=== PATIENT | female | born 1945 | race Caucasian/White ===

== ENCOUNTER → 2018-08-07 | Day surgery (SDC) | payer MEDICARE, OTHER ==
[2018-08-03 10:32] LABS: Basophils # (auto) 0.1 uL; Basophils % (auto) 1.2 % (0.0-2.0); Eosinophils # (auto) 0.1 uL; Eosinophils % (auto) 1.8 % (0.0-7.0); Hematocrit 42.4 % (36.0-46.0); Hemoglobin 14.4 g/dL (12.2-16.2); Lymphocytes # (auto) 1.7 uL; Lymphocytes % (auto) 28.3 % (10.0-50.0); Mean Corpuscular Hemoglobin 30.8 pg (28.0-32.0); Mean Corpuscular Hgb Conc. 34.1 g/dL (32.0-36.0); Mean Corpuscular Volume 90.4 fL (80.0-100.0); Monocytes # (auto) 0.6 uL; Monocytes % (auto) 9.8 % (0.0-12.0); Neutrophils # (auto) 3.5 uL; Neutrophils % (auto) 58.9 % (37.0-80.0); Platelet Count (auto) 209 10^3/uL (140-450); Red Blood Cells 4.68 10^6/uL (4.0-5.20); Red Cell Distribution Width 12.7 % (11.8-14.3); White Blood Cell 5.9 10^3/uL (4.4-10.8)
[2018-08-03 10:46] LABS: INR 0.89 (0.9-1.15); Partial Thromboplastin Time 23.9 sec (23.78-33.04)
[2018-08-03 10:56] LABS: Albumin 3.8 g/dL (3.4-5.0); Calcium 9.7 mg/dL (8.5-10.1); Potassium 3.8 mmol/L (3.5-5.1)
[2018-08-03 11:02] LABS: Bilirubin, Total 0.5 mg/dL (0.2-1.0); Total Protein 7.3 g/dL (6.4-8.2)
[2018-08-03 11:17] LABS: Urine Bacteria NONE SEEN /hpf (None Seen); Urine Blood Negative /uL (Negative); Urine Specific Gravity 1.006 (1.001-1.035); Urine WBC <1 /hpf (0 - 5)
[2018-08-03 11:31] LABS: BUN/Creatinine Ratio 15.7
[~2018-08-07] VITALS: Ht 160 cm; Wt 68.9 kg
[~2018-08-07] MED LIST: ALEN1TAB32 PO; AMLO5TAB13 PO; CALCTAB5 PO; CARI350T22 PO; ETOMIDATE (2MG/ML) 20ML VIAL IV ONE; GABA300C10 PO; GLYCOPYRROLATE 0.2 MG/ML 1ML VIAL ONE; HYDR25TA4 PO; HYDROmorphone HCL 2 MG/ML VL IV PRN; IBUP200C14 PO; LIDOCAINE 1% (LOCAL ANESTH.) PF 5ml SDV ONE; LIDOCAINE 1% HCL (LOCAL ANESTH.) INJ 20ML MDV ONE; LIDOCAINE W/ EPINEPHRINE 2% INJ 20ML VIAL ONE; LOSA-49 PO; MIDAZOLAM HCL 1MG/1ML-2 ML VIAL ONE; MULT-228 PO; NALOXONE HCL 0.4 MG/ML VIAL IV PRN; NEOSTIGMINE 1 MG/ML INJ (10mg/10ML VIAL) ONE; OMEG100062 PO; ONDANSETRON HCL 4 MG/2 ML VIAL IV ONE; PRAV20TA3 GT; ROCURONIUM 10MG/ML 10ML VIAL IV ONE; ROPIVACAINE 0.5% (5MG/ML) 20ML AMPULE IJ ONE; STERILE WATER 10 ML ONE; SUCCINYLCHOLINE CHLORIDE 20 MG/ML 10ML VIAL IV ONE; ceFAZolin 1GM/50ML 50 ML IV ONE; ePHEDrine SULFATE 50 MG/ML AMP ONE; fentaNYL CITRATE 100 MCG/2 ML VL ONE
[2018-08-07 13:22] VITALS: BP 151/88
== END | disposition home or self-care (01) ==
LOC: SUR 07:58
PROVIDERS: ATTEND Orthopaedic Surgery
DX: M65.811 Other synovitis and tenosynovitis, right shoulder (principal); M75.51 Bursitis of right shoulder; M75.121 Complete rotator cuff tear or rupture of right shoulder, not specified as traumatic; M75.41 Impingement syndrome of right shoulder; M75.21 Bicipital tendinitis, right shoulder; M19.011 Primary osteoarthritis, right shoulder; M89.8X1 Other specified disorders of bone, shoulder; M24.111 Other articular cartilage disorders, right shoulder; I10 Essential (primary) hypertension; M19.90 Unspecified osteoarthritis, unspecified site; G56.81 Other specified mononeuropathies of right upper limb; E11.40 Type 2 diabetes mellitus with diabetic neuropathy, unspecified; G89.29 Other chronic pain; Z79.899 Other long term (current) drug therapy; Z87.891 Personal history of nicotine dependence; Z98.890 Other specified postprocedural states
CPT/HCPCS: 29822; 29826; 36415; 64450; 80053; 81001; 85025; 85610; 85730; J0330; J0690; J2250; J2795; J3010; J2001

== ENCOUNTER 2024-10-14 04:35 | Emergency (ER) | payer MEDICARE, OTHER ==
[~2024-10-14] VITALS: Ht 157.5 cm; Wt 68.0 kg
[~2024-10-14 04:35] MED LIST changes: -ALEN1TAB32 PO; +ALEN70TA74 PO; +AMLO1TAB22 PO; -AMLO5TAB13 PO; +CARI-578 PO; -CARI350T22 PO; -ETOMIDATE (2MG/ML) 20ML VIAL IV ONE; +GABA-1250 PO; -GABA300C10 PO; -GLYCOPYRROLATE 0.2 MG/ML 1ML VIAL ONE; -HYDROmorphone HCL 2 MG/ML VL IV PRN; -LIDOCAINE 1% (LOCAL ANESTH.) PF 5ml SDV ONE; -LIDOCAINE 1% HCL (LOCAL ANESTH.) INJ 20ML MDV ONE; -LIDOCAINE W/ EPINEPHRINE 2% INJ 20ML VIAL ONE; -LOSA-49 PO; +LOSA-535 PO; -MIDAZOLAM HCL 1MG/1ML-2 ML VIAL ONE; -NALOXONE HCL 0.4 MG/ML VIAL IV PRN; -NEOSTIGMINE 1 MG/ML INJ (10mg/10ML VIAL) ONE; -ONDANSETRON HCL 4 MG/2 ML VIAL IV ONE; -ROCURONIUM 10MG/ML 10ML VIAL IV ONE; -ROPIVACAINE 0.5% (5MG/ML) 20ML AMPULE IJ ONE; -STERILE WATER 10 ML ONE; -SUCCINYLCHOLINE CHLORIDE 20 MG/ML 10ML VIAL IV ONE; -ceFAZolin 1GM/50ML 50 ML IV ONE; -ePHEDrine SULFATE 50 MG/ML AMP ONE; -fentaNYL CITRATE 100 MCG/2 ML VL ONE
--- NOTE | 2024-10-14 05:03 | ED.PDOC ---
History of Present Illness HPI Comments 79 y/o F presents with c/c hypertension, chest wall tightness, and generalized arm and leg tingling sensations. Patient reports sudden and unprovoked onset of symptoms, this morning, at 0400. She reports on, initially, experiencing chest tightness and tingling sensations before checking and noticing her blood pressure being elevated at 185/90. Patient then reports on taking her prescribed Clonidine medication at 0410 and rechecking her blood pressure 20 minutes afterwards at 198/110. Now, patient reports some improvement, endorsing only having mild tingling sensations to her hands and feet, dry mouth, and a stomach ache. Denies having any shortness of breath, palpitations, dizziness, lightheadedness, fever, chills, or further associated symptoms. No endorsement of any recent lifestyle changes or additional pertinent history. Time Seen by MD: 04:45 Primary Care Provider: [email or web address] Reviewed Notes: Nurses Notes, Medications, Allergies Allergies: Coded Allergies: NO KNOWN ALLERGIES (Unverified , 04/19/13) Home Meds Reported Medications [place]-3 Fatty Acids (Fish Oil) 1,000 Mg Cap, 1000 MG PO, CAP 08/03/18 Multiple Vitamin (Multi-Day Vitamins) Vitamins Tab, 1 TAB PO DAILY, #30 TAB 08/03/18 Calcium Carbonate (Caltrate 600) 1,500 Mg Tab, 1000 MG PO, TAB 08/03/18 Ibuprofen (Advil) 200 Mg Cap, 200 MG PO, CAP 08/03/18 Gabapentin (Gabapentin) 300 Mg Cap, 300 MG PO for 30 Days, MG 08/03/18 Carisoprodol (Carisoprodol) 350 Mg Tab, 350 MG PO Q12HP PRN for BLADDER SPASM for 30 Days, MG 08/03/18 Alendronate Sodium (Alendronate Sodium) 70 Mg Tab, 1 TAB PO QWEEKLY, #4 TAB 3 Refills 08/03/18 Pravastatin Sodium (PRAVACHOL TABLET) 20 Mg Tb, 80 MG GT 08/03/18 Amlodipine Besylate (Amlodipine Besylate) 5 Mg Tab, 2.5 MG PO DAILY for 30 Days, MG 08/03/18 Hydrochlorothiazide (Hydrochlorothiazide) 25 Mg Tab, 25 MG PO DAILY for 30 Days, MG 08/03/18 Losartan Potassium (Losartan Potassium) 100 Mg Tab, 1 TAB PO DAILY, #30 TAB 5 Refills 08/03/18 Information Source: Patient Mode of Arrival: Ambulatory Severity: Moderate Timing: Hours Duration: Since onset Prehospital treatment: Treatment (Clonidine ) Past Medical History PAST MEDICAL HISTORY: HTN Surgical History: BTL Surgical History (Other): Right shoulder surgery OPTICAL ENGINEER History: Denies all OPTICAL ENGINEER Hx Family History Family History: Unknown Social History Smoker: Non-Smoker Alcohol: Denies ETOH Use Drugs: Denies Drug Use Lives In: Home All Other Systems: Reviewed and Negative (Comprehensive systems review obtained and negative except for what is stated in the HPI.) Physical Exam General Appearance: Moderate Distress HEENT: Normal ENT Inspection, Pharynx Normal, TMs Normal Neck: Full Range of Motion, Non-Tender, Normal, Normal Inspection Respiratory: Chest Non-Tender, Lungs Clear, No Accessory Muscle Use, No Respiratory Distress, Normal Breath Sounds Cardiovascular: No Edema, No JVD, No Murmur, No Gallop, Normal Peripheral Pulses, Regular Rate/Rhythm Breast Exam: Deferred Gastrointestinal: No Organomegaly, Non Tender, No Pulsatile Mass, Normal Bowel Sounds, Soft Genitalia: Deferred Pelvic: Deferred Rectal: Deferred Extremities: No calf tenderness, Normal capillary refill, Normal inspection, Normal range of motion, Non-tender, No pedal edema Musculoskeletal : Apperance: Normal Neurologic: Alert, mathematician research II-XII nml as Tested, No Motor Deficits, Normal Affect, Normal Mood, No Sensory Deficits Cerebellar Function: NOT DONE Reflexes: NOT DONE Skin: Dry, Normal Color, Warm Peripheral Pulses: 3+ Radial (R), 3+ Radial (L) Lymphatic: No Adenopathy Was a procedure done? Was a procedure done?: No EKG EKG : Pulse Rate (adult): 70 [place]: Normal Cardiac Rhythm: NSR Block: None Hypertrophy: None ST: Normal Differential Dx Considerations may include: HTN emergency, inappropriate medication dosage, dehydration, electrolyte imbalance, GA, PE, ACS, angina, among others X-Ray, Labs, Meds, VS Vital Signs Date Time Temp Pulse Resp B/P (MAP) Pulse Ox O2 Delivery O2 Flow Rate FiO2 10/14/24 05:36 63 10/14/24 05:03 70 10/14/24 04:43 70 10/14/24 04:35 97.5 72 20 184/89 (120) 98 97.5 Lab Test 10/14/24 06:29 10/14/24 05:56 10/14/24 05:29 Range/Units Troponin I High Sensitivity Pending 4 </=34 ng/L B-Type Natriuretic Peptide Pending White Blood Count 4.6 4.4-10.8 10^3/uL Red Blood Count 4.74 4.0-5.20 10^6/uL Hemoglobin 14.7 12.2-16.2 g/dL Hematocrit 41.4 36.0-46.0 % Mean Corpuscular Volume 87.4 80.0-100.0 fL Mean Corpuscular Hemoglobin 31.0 28.0-32.0 pg Mean Corpuscular Hemoglobin Concent 35.5 32.0-36.0 g/dL Red Cell Distribution Width 12.9 11.8-14.3 % Platelet Count 213 140-450 10^3/uL Mean Platelet Volume 8.1 6.9-10.8 fL Neutrophils (%) (Auto) 59.5 37.0-80.0 % Lymphocytes (%) (Auto) 22.4 10.0-50.0 % Monocytes (%) (Auto) 9.2 0.0-12.0 % Eosinophils (%) (Auto) 6.5 0.0-7.0 % Basophils (%) (Auto) 2.4 H 0.0-2.0 % Neutrophils # (Auto) 2.8 1.6-8.6 10 ^3/uL Lymphocytes # (Auto) 1.0 0.4-5.4 10 ^3/uL Monocytes # (Auto) 0.4 0-1.3 10 ^3/uL Eosinophils # (Auto) 0.3 0-0.8 10 ^3/uL Basophils # (Auto) 0.1 0-0.2 10 ^3/uL Nucleated Red Blood Cells 0.0 % Sodium Level 140 136-145 mmol/L Potassium Level 3.5 3.5-5.1 mmol/L Chloride Level 103 98-107 mmol/L Carbon Dioxide Level 30 20-31 mmol/L Anion Gap 7 5-15 Blood Urea Nitrogen 12 9-23 mg/dL Creatinine 0.84 0.550-1.02 mg/dL Glomerular Filtration Rate Calc 71 >90 mL/min BUN/Creatinine Ratio 14.3 10.0-20.0 Serum Glucose 99 74-106 mg/dL Calcium Level 9.5 8.7-10.4 mg/dL Patient alert. Complaining of chest pain. Vitals stable. Answering questions. WBC within normal limits. Cardiac marker within normal limits. Blood pressure elevated. Was given clonidine. Possibly need echocardiogram. Explained to the patient. Continue monitoring. Time of 1ST Reevaluation: 05:15 Reevaluation 1ST: Unchanged Patient Education/Counseling: Diagnosis, Treatment Family Education/Counseling: No Family Present Additional Information Previous visits reviewed: April 19, 2013 encounter for HTN. The following tests were ordered, and results were reviewed by me: EKG, CT head w/o contrast, BMP, CBC, BNP, UA, troponin Additional Information was gathered from interviewing the following independent historians: N/A I reviewed and agreed with the following test results read by other providers: CT head w/o contrast I discussed treatment and results with medical personnel and: patient SEPSIS Sepsis Screen Physician Orders Urinalysis (10/14/24 04:53) B-Type Natriuretic Peptide (10/14/24 04:53) Chest Portable (10/14/24 04:53) Head Without Contrast (10/14/24 04:53) Troponin-I Hs (10/14/24 05:53) Troponin-I Hs (10/14/24 07:53) Electrocardigram (10/14/24 05:53) Electrocardigram (10/14/24 07:53) Vital Signs Date Time Temp Pulse Resp B/P (MAP) Pulse Ox O2 Delivery O2 Flow Rate FiO2 10/14/24 05:36 63 10/14/24 05:03 70 10/14/24 04:43 70 10/14/24 04:35 97.5 72 20 184/89 (120) 98 97.5 Laboratory Tests Test 10/14/24 05:29 White Blood Count 4.6 10^3/uL (4.4-10.8) Departure 1 Departure Time of Disposition: 07:21 Impression: Primary Impression: Chest pain of unknown etiology Additional Impression: Hypertensive urgency Disposition: ADMITTED INPATIENT Admit to: Med Surg Condition: Guarded Critical Care Note Critical Care Time?: Yes (90 min-critical care time only) Critical care comment: Continue to monitor Stability Stability form required: No Heart Score Heart Score: Heart Score Response (Comments) Value History Slightly Suspicious 0 EKG Normal 0 Age >65 2 Risk Factors 1 or 2 risk factors 1 Troponin Normal limit 0 Total 3 I personally scribed for LIMA AYALA MD ([email or web address]) on 10/14/24 at 05:03. Electronically submitted by Macario Haq [email or web address]). LIMA AYALA MD Oct 14, 2024 05:03 RONAL TRENT MD Oct 14, 2024 07:22
--- NOTE | 2024-10-14 05:19 | DVH ---
CHEST RADIOGRAPH Indication: chest pain Technique: Single frontal view of the chest was obtained COMPARISON: None FINDINGS: Lines and Tubes: None Lungs: Clear Pleura: No effusion. No pneumothorax. Cardiomediastinal contours: Unremarkable Bones: Unremarkable IMPRESSION: 1. No acute disease.
--- NOTE | 2024-10-14 05:20 | DVH ---
EXAM: CT HEAD WITHOUT CONTRAST INDICATION: chest pain TECHNIQUE: CT of the head without intravenous contrast. Radiation Dose : 1. Head: CT Dose: CTDI volume is 51.4 mGy. Dose-length product is 824.04 mGy*cm The dose indicators for CT are the volume Computed Tomography (CT) Dose Index (CTDIvol) and the Dose Length Product (DLP), and are measured in units of mGy and mGy-cm, respectively. These indicators are not patient dose, but values generated from the CT scanner acquisition factors. The report includes radiation exposure data for exposures received during this examination. COMPARISON: None FINDINGS: There is no evidence of acute intracranial hemorrhage, extra-axial collection, mass effect, midline s hift, herniation or hydrocephalus. The ventricles, sulci and cisterns are age appropriate. The zelaya-white differentiation is intact. Moderate diffuse confluent periventricular and subcortical white matter hypoattenuation is nonspecifi c but may be related to small vessel ischemic disease. The visualized paranasal sinuses and mastoid air cells are clear. The surrounding soft tissues and osseous structures are unremarkable. IMPRESSION: 1. No acute intracranial abnormality. 2. Chronic sequelae of microvascular disease. Radiation optimization: All CT scans at this facility use at least one of these dose optimization steven hniques: automated exposure control mA and/or kV adjustment per patient size (includes targeted exam s where dose is matched to clinical indication) or iterative reconstruction.
--- NOTE | 2024-10-14 05:38 | ECG ---
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
[2024-10-14 06:30] LABS: Hematocrit 41.4 % (36.0-46.0); Hemoglobin 14.7 g/dL (12.2-16.2); Mean Corpuscular Hemoglobin 31.0 pg (28.0-32.0); Mean Corpuscular Volume 87.4 fL (80.0-100.0); Nucleated Red Blood Cells % 0.0 %
[2024-10-14 06:32] LABS: Chloride 103 mmol/L (98-107); Sodium 140 mmol/L (136-145)
[2024-10-14 06:33] LABS: Anion Gap 7 (5-15); Calcium 9.5 mg/dL (8.7-10.4); Carbon Dioxide 30 mmol/L (20-31)
[2024-10-14 06:38] LABS: BUN/Creatinine Ratio 14.3 (10.0-20.0); Blood Urea Nitrogen 12 mg/dL (9-23); Glucose 99 mg/dL (74-106)
[2024-10-14 06:39] LABS: Potassium 3.5 mmol/L (3.5-5.1)
[2024-10-14 07:19] VITALS: TEMP 97.9
[2024-10-14] MEDS: hydrALAZINE HCL 20 MG/ML VL IV ONE (08:00)
[2024-10-14 08:56] LABS: Urine Protein, UAD Negative (Negative)
[2024-10-14 09:44] VITALS: BP 139/69; PULSE 66; RESP 18; O2SAT 97
--- NOTE | 2024-10-14 19:03 | ECG ---
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
--- NOTE | 2024-10-15 08:42 | ECG ---
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
== END 2024-10-14 12:07 | disposition left against medical advice (07) ==
LOC: ER 04:35
DX: R07.89 Other chest pain (principal); I16.0 Hypertensive urgency; I10 Essential (primary) hypertension; Z79.899 Other long term (current) drug therapy; Z98.51 Tubal ligation status
CPT/HCPCS: 36415; 70450; 71045; 80048; 81001; 83880; 84484; 85025; 93005